=== PATIENT | male | born 1940 | race Caucasian/White ===

== ENCOUNTER 2019-12-26 11:27 | Inpatient (IN) ==
--- OUTSIDE RECORDS SUMMARY | 2019-12-26 11:30 | External Medical Summary | Continuity of Care Document ---
:1940 Author Name Allmena M.D. 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 Refills: 0 Zocor 20 MG Oral Tablet; TAKE 0.5 TABLET Bedtime , M.D. Refills: 0 glipiZIDE 10 MG Oral Tablet; Take 1 tablet twice daily , M.D . Refills: 0 Viagra 100 MG Oral Tablet; 1/2 as needed , M.D. Start: 14-Oct-2013 Quantity: 6 Refills: 5 raNITIdine HCl - 150 MG Oral Tablet; TAKE 1 TABLET TWICE MEKA LY. , M.D. Refills: 0 Vitamin B-12 1000 MCG Oral Tablet; TAKE 1 TABLET DAILY DI RECTED. , M.D. Refills: 0 Aspirin 81 81 MG Oral Tablet Delayed Release , M.D. Refills: 0 Nitroglycerin 0.4 MG Sublingual Tablet S ublingual; DISSOLVE 1 TABLET UNDER THE TONGUE NEEDED FOR CHEST PAIN. , M.D. Refills: 0 traMADol HCl - 50 MG Oral Tablet , M.D. Refills: 0 Doxycycline Hyclate 100 MG Oral Tablet; Take 1 tablet twice daily , M.D. Start: 14-Oct-2013 Refills: 0 Procedures History of CABG Status: Completed History of Knee Replacement Status: Comp leted History of Cath Stent Placement Status: Completed History of Cystoscopy With Insertion Of Ureteral Stent Status: Completed History of Renal Lithotripsy Status: Com pleted Immunizations Immunizations not documented Family History Unknown Family Member Family history of Diabetes Mellitus (V18.0) Status: Active Comments: Family History Family history of Hypertension (V17.49) Status: Active Comments: Family History Family history of Nephrolithiasis Status: Active Commen ts: Family History Family history of Prostate Cancer (V16.42) Status: Active Comments: Family History Family history of Heart Disease (V17.49) Status: Active Comments: Family History Social History - Smoking Status Never smoked tobacco Plan of Treatment Planned Observations Planned Goals not documented Results No Known Results Results not documented
[2019-12-26] MEDS ORDERED: NiCARDipine HCL INJ 2.5 MG/ML 10 ML AMP ONE (11:34)
[2019-12-26] MEDS ORDERED: MIDAZOLAM HCL 1 MG/ML 2ML VIAL ONE ×3 (11:34→14:27)
[2019-12-26] MEDS ORDERED: fentaNYL citrate 100 MCG/2 ML VIAL ONE ×3 (11:34→14:27)
[2019-12-26] MEDS ORDERED: HEPARIN (PORCINE) 1000 UNIT/ML 10 ML (CATH LAB USE ONLY) ONE (11:34)
[2019-12-26] MEDS ORDERED: NITROGLYCERIN/D5W 100MCG/ML 20ML SYR ONE (11:35)
[2019-12-26] MEDS ORDERED: EPINEPHrine (STAT use only) 2 MG in D5W 250 ML IV STA (11:35)
[2019-12-26] MEDS ORDERED: NOREPINEPHRINE BITARTRATE 1 MG/ML 4 ML VIAL (CATH LAB USE ONLY) ONE (11:40)
[2019-12-26] MEDS ORDERED: EPINEPHrine 4 MG in DEXTROSE 5% HYPOTENSION IV SCH (11:45)
[2019-12-26] MEDS ORDERED: SUCCINYLCHOLINE CHLORIDE 20 MG/ML 10 ML VIAL IV ONE (11:46)
[2019-12-26] MEDS ORDERED: KETAMINE HCL INJ 50 MG/ML 10 ML VIAL IV ONE (11:46)
[2019-12-26] MEDS ORDERED: ATROPINE SULFATE 0.1 MG/ML 10ML SYR IV ONE (11:46)
[2019-12-26] MEDS ORDERED: SODIUM CHLORIDE 0.9% 10ML FLUSH IV ONE (11:46)
[2019-12-26] MEDS ORDERED: SODIUM BICARB 8.4% INJ 50 MEQ/50 ML SYR IV ONE (11:46)
--- NOTE | 2019-12-26 11:49 | Emergency Department Note ---
Impression & Plan ST elevation (STEMI) myocardial infarction, Cardiogenic shock, Chest pain ED Provider Note Provider: Philippe Irwin MD DATE OF SERVICE: 12/26/2019 CHIEF COMPLAINT: Chest pain HISTORY OF PRESENT ILLNESS: Patient is a 79-year-old gentleman with a history of CKD, GERD, CAD status post CABG, diabetes presenting via ambulance today with chest pain. Alerted by EMS prior to arrival. Around 10 AM this morning severe chest pressure started. EMS consulted for concern for ST segment elevation giv en some anteriorly changes and inferior depressions. In review of this EKG to the prior from July 03 this does appear new. Given this and the report of the patient's conditions very concerned for cardiac etiology and ST segment elevation heart alert was activated. Patient reported to be diaphoretic prior to arrival. Took full dose aspirin and nitrox1 prior to arrival without change in symptoms. Blood pressure was initially in the 90s but then dropped to the 70s for EMS. Repeat EKG prior to arrival showed worsening inferior ST depression without such significant anterior changes. Upon arrival patient was quickly assessed blood pressure in the 50s. Appears quite uncomfortable and diaphoretic. Reports he was vacuuming and then had onset of chest pain and pressure 10 out of 10. Constant. No change in the symptoms since initiation. REVIEW OF SYSTEMS: A total of 10 review of systems was obtained and negative except as stated above in the HPI. PAST MEDICAL HISTORY: As noted above MEDICATIONS: Reviewed, include nitro, metoprolol FMH: Diabetes SOCIAL HISTORY: Not reported tobacco user but smoked in the past. Retired PHYSICAL EXAM: GENERAL: alert and oriented on the stretcher appears uncomfortable with eyes closed Head: normocephalic and atraumatic EYES: No injection, discharge or icterus. NECK: Trachea midline. Supple. ENT: Mucous membranes pink and moist. LUNGS: Airway patent. No retractions. Breath sounds HEART: Regular rate and rhythm. No chest wall tenderness ABDOMEN: Soft and non-tender, without guarding or rebound. BACK: No bilateral flank tenderness. SKIN: Pale, diaphoretic with mildly decreased peripheral perfusion. EXTREMITIES: Without swelling, tenderness or deformity NEUROLOGICAL: No focal deficits. No aphasia. No facial droop or slurred speech. EK bpm. Normal sinus rhythm right bundle branch. Acute ST segment elevation of the anterior leads is noted with reciprocal inferior depressions. This and the right bundle branch are new in comparison to previous available from June 2016. CONTINUOUS CARDIAC MONITORING: was ordered and showed a heart rate of 72 bpm in normal sinus rhythm HOSPITAL COURSE: 1127 Patient was first seen and H&P performed. 1143 patient taken to the cardiac catheterization lab. 1150 discussed and updated the patient's daughter via phone. 1235 called to the cardiac catheterization lab for intubation as the patient had declined and requires airway protection on the cardiac cath table. 1243 patient intubated. Additional care per the oil process stillman. Patient's laboratory studies and imaging reviewed. Differential includes Cardiac ischemia, aortic dissection, pulmonary embolism, pneumothorax, pneumonia, pericarditis, myocarditis, esophageal rupture, GERD, cholecystitis, pancreatitis, musculoskeletal, as well as other pathologies. IMPRESSION/MEDICAL DECISION MAKING: Patient presents activated prehospital for STEMI. Appears to be anterior wall STEMI. Hypotensive in the 50s with severe crushing chest pressure. Second IV was established. Second liter of IV fluid initiated. Started on peripheral epinephrine drip. Patient's blood pressure began to mildly respond. Limited pain medication nitroglycerin secondary to hypotension. lapidarist at bedside and discussed with patient and plans for further care in the cardiac catheterization lab. Lower suspicion this represents acute PE or dissection. No recent illnesses or exposures and lower suspicion for coronavirus at this time. Patient prior to arrival received aspirin. Patient hypotensive a second IV fluid bolus was given. Start epinephrine drip for hypotension and cardiogenic shock. Mild improvement of blood pressure with this. Does appear to have some decreased generalized peripheral perfusion. To the Lotus Notes Administrator for further care. DIAGNOSIS: STEMI, CP, cardiogenic shock DISPOSITION: To the cardiac catheterization lab for further care. ------ I was later called to the cardiac catheterization lab to intubate the patient for airway protection due to decline during the procedure. Patient evidently vomited during the cardiac catheterization procedure and persisted to be hy potensive and in shock. Respiratory therapy was available. Patient was on multiple pressors during the encounter including norepinephrine and epinephrine. Procedure: Intubation Indication airway protection. Intubation occurred approximately 12:43 PM. The patient was on 100% oxygen via NRB prior to the procedure. Suction, airway equipment, RSI drugs, respiratory equipment, and appropriate personnel were prepared prior to the initiation of the procedure. Patient was somewhat awake and talking and informed that we needed to perform this procedure to try to save his life and protect his airway. Induction was performed with 180mg of ketamine trying to maximize the patient's hypotensive state. Patient had some dissociation with some mild muscle spasm and was thus given 150 mg of succinylcholine for the intubation. The airway was visualized utilizing a glide scope #3. A 7.0 size ETT tube was placed atraumatically to 22 cm using standard technique at lips. The airway had vomitus that was suctioned and the cuff inflated without signs of malfunction. There were bilateral breath sounds, positive colormetric change. Patient was on the cardiac director of cardiac cath lab table in cardiogenic shock with poor peripheral perfusion. Unable to reliably obtain a pulse ox. The tube was secured and the patient was ventilated with BVM. Bilateral breath sounds were appreciated with color change noted. Peep valve was placed on the BVM. Shortly after intubation the patient had a period of arrhythmia and cardiac arrest. This resuscitation was directed by Dr. Zuniga performing the cardiac catheterization. See his documentation for further information. Critical Care I have personally spent 50 minutes of critical care time in the direct management of this patient. This includes bedside care, interpretation of diagnostic studies, and testing, discussion with consultants, patient, and family members, and other required patient management activities. These 50 minutes is in excess of all separately billable procedures. Past Med/Surg History Medical History CAD (coronary artery disease) CKD (chronic kidney disease), stage III Diabetes mellitus type II, controlled Dyslipidemia HTN (hypertension) with goal to be determined Surgical History S/P CABG x 3 Social History Communication Ability Comment: per EMR former tobacco user (snuff) Feels Safe at Home: Yes Smoking Status: Unknown if ever smoked Allergies Allergies Allergy/AdvReac Type Severity Reaction Status Date / Time No Known Allergies Allergy Unknown ` Verified 10/15/14 06:28 Home Meds Home Medications Medication Instructions Recorded Confirmed Nitroglycerin (Nitrostat) 0.4 mg UT UD PRN #0 12/26/09 Metoprolol Tartrate (Lopressor) 25 mg PO BID #0 07/02/10 (Lopressor) Ranitidine (Zantac) 150 mg PO BID #0 10/05/12 Simvastatin (Zocor) 20 mg PO QPM #0 08/21/13 ASPIRIN (OCTAVIA CHEWABLE LOW DOSE) 81 mg PO DAILY #0 10/15/14 CYANOCOBALAMIN (VITAMIN B12 500MCG) 500 mcg PO DAILY #0 10/15/14 LISINOPRIL 2.5 mg PO DAILY #0 tab 07/03/16 Previous Rx's Medication Instructions Recorded CALCIUM CARBONATE-VITAMIN D W/ 1 tab PO BID 30 Days #60 tab 07/07/16 (CALTRATE 600 PLUS) Enoxaparin (Enoxaparin Sodium) 40 mg SUBCUT QAM 14 Days #14 dose 07/07/16 Ergocalciferol (Vitamin D) 50,000 interunit PO Th@0900 90 07/07/16 Days #11 cap GLUCOSE BLOOD (BLOOD GLUCOSE TEST 1 box NOT APPLICABLE UD 30 Days #1 07/07/16 STRIPS) box Insulin Aspart (NOVOLOG) 5 unit SC TIDM 30 Days #1 btl 07/07/16 Insulin Glargine (Lantus) 25 unit SC QAM 30 Days #1 btl 07/07/16 glucose monitor 1 dose UD 30 Days #1 dose 07/07/16 lancet 1 box NOT APPLICABLE UD 30 Days #1 07/07/16 box needles 1 box 30 Days #1 box 07/07/16 syringes 1 box 30 Days #1 box 07/07/16 Results & Data (ED) Vital Signs Vital Signs - 24 hr 12/26/19 11:27 12/26/19 11:36 12/26/19 11:43 Temperature Source Oral Pulse Rate 76 76 Pulse Rate [Right Finger] 76 93 H Respiratory Rate 24 18 20 Blood Pressure 56/39 L Blood Pressure [Right Arm] 55/39 L 69/45 L Blood Pressure Mean 44 Blood Pressure Mean [Right Arm] 44 53 Pulse Oximetry 99 Oxygen Delivery Method Room Air Nasal Cannula Oxygen Flow Rate 2 Sepsis Recent Fever Within 48 Hours No Sepsis Action Taken by Nursing No Action Required 12/26/19 11:45 Temperature Source Pulse Rate 92 H Pulse Rate [Right Finger] Respiratory Rate 18 Blood Pressure 69/45 L Blood Pressure [Right Arm] Blood Pressure Mean Blood Pressure Mean [Right Arm] Pulse Oximetry 96 Oxygen Delivery Method Nasal Cannula Oxygen Flow Rate 2 Sepsis Recent Fever Within 48 Hours Sepsis Action Taken by Nursing Laboratory Data Result diagrams: 12/26/19 10:55 12/26/19 10:55 Lab Results 12/26/19 12/26/19 12/26/19 Range/Units 10:55 10:55 10:55 WBC 8.82 (4.8-10.8) K/uL RBC 4.40 L (4.7-6.1) M/uL Hgb 14.5 (14.0-18.0) g/dL POC Hgb (14.0-18.0) g/dl Hct 41.7 L (42-52) % POC Hct (42-52) % MCV 94.8 (80-100) fL MCH 33.0 (25-34) pg MCHC 34.8 (32-36) g/dL RDW Std Deviation 45.3 (36.4-46.3) fL RDW Coeff of Gricelda 13.1 (11.5-14.5) % Plt Count 167 (130-400) K/uL MPV 11.0 H (7.4-10.4) fL Immature Gran % (Auto) 0.8 % Neut % (Auto) 60.4 % Lymph % (Auto) 22.1 % [place] % (Auto) 11.6 % Eos % (Auto) 4.5 % Baso % (Auto) 0.6 % Immature Gran # (Auto) 0.07 H (0.00-0.02) K/uL Neut # (Auto) 5.33 (1.4-6.5) K/uL Lymph # (Auto) 1.95 (1.2-3.4) K/uL [place] # (Auto) 1.02 H (0.11-0.59) K/uL Eos # (Auto) 0.40 (0-0.5) K/uL Baso # (Auto) 0.05 (0-0.2) K/uL PT 11.3 (9.0-12.0) Seconds INR 1.1 (0.9-1.1) APTT 23.3 (21.0-31.0) Seconds PTT Ratio 0.8 POC Sodium (135-144) mmol/L Sodium (136-145) mmol/L POC Potassium (3.3-5.0) mmol/L Potassium (3.5-5.1) mmol/L POC Chloride (101-112) mmol/L Chloride (98-107) mmol/L Carbon Dioxide (21-32) mmol/L POC Total CO2 (24-31) mmol/L Anion Gap (3-11) POC Anion Gap (16-25) mmol/L POC BUN (7-18) mg/dl BUN (7-18) mg/dl Creatinine (0.6-1.4) mg/dl POC Creatinine (0.6-1.3) mg/dl Est Cr Clr Drug Dosing Est GFR ( Amer) Est GFR (Non-Af Amer) BUN/Creatinine Ratio (10-20) Glucose (70-99) mg/dl POC Glucose (other) (70-99) mg/dl Calcium (8.5-10.1) mg/dl POC Ioniz Calcium Julio (1.12-1.32) mmol/l Magnesium (1.8-2.4) mg/dl Total Bilirubin (0.2-1) mg/dl AST (15-37) U/L ALT (12-78) U/L Alkaline Phosphatase (45-117) U/L Total Creatine Kinase (39-308) U/L CK-MB (CK-2) (0.5-3.6) ng/ml CK/CKMB % Calc (0-3.0) Troponin I Cancelled Total Protein (6.4-8.2) gm/dl Albumin (3.4-5.0) gm/dl Globulin (2.5-4.0) gm/dl Albumin/Globulin Ratio (0.9-2) Lipase (73-393) U/L Beta-Hydroxybutyric Acd (0.2-2.81) mg/dl TSH (0.300-4.500) uIu/ml 12/26/19 12/26/19 Range/Units 10:55 11:40 WBC (4.8-10.8) K/uL RBC (4.7-6.1) M/uL Hgb (14.0-18.0) g/dL POC Hgb 13.9 L (14.0-18.0) g/dl Hct (42-52) % POC Hct 41 L (42-52) % MCV (80-100) fL MCH (25-34) pg MCHC (32-36) g/dL RDW Std Deviation (36.4-46.3) fL RDW Coeff of Gricelda (11.5-14.5) % Plt Count (130-400) K/uL MPV (7.4-10.4) fL Immature Gran % (Auto) % Neut % (Auto) % Lymph % (Auto) % [place] % (Auto) % Eos % (Auto) % Baso % (Auto) % Immature Gran # (Auto) (0.00-0.02) K/uL Neut # (Auto) (1.4-6.5) K/uL Lymph # (Auto) (1.2-3.4) K/uL [place] # (Auto) (0.11-0.59) K/uL Eos # (Auto) (0-0.5) K/uL Baso # (Auto) (0-0.2) K/uL PT (9.0-12.0) Seconds INR (0.9-1.1) APTT (21.0-31.0) Seconds PTT Ratio POC Sodium 140 (135-144) mmol/L Sodium 139 (136-145) mmol/L POC Potassium 4.5 (3.3-5.0) mmol/L Potassium 3.9 (3.5-5.1) mmol/L POC Chloride 109 (101-112) mmol/L Chloride 108 H (98-107) mmol/L Carbon Dioxide 24 (21-32) mmol/L POC Total CO2 20 L (24-31) mmol/L Anion Gap 7.0 (3-11) POC Anion Gap 16.0 (16-25) mmol/L POC BUN 39 H (7-18) mg/dl BUN 38 H (7-18) mg/dl Creatinine 1.99 H (0.6-1.4) mg/dl POC Creatinine 1.9 H (0.6-1.3) mg/dl Est Cr Clr Drug Dosing Not Reportable Est GFR ( Amer) 35.7 Est GFR (Non-Af Amer) 30.8 BUN/Creatinine Ratio 19.2 (10-20) Glucose 316 H* (70-99) mg/dl POC Glucose (other) 332 H (70-99) mg/dl Calcium 9.1 (8.5-10.1) mg/dl POC Ioniz Calcium Julio 1.25 (1.12-1.32) mmol/l Magnesium 1.9 (1.8-2.4) mg/dl Total Bilirubin 0.8 (0.2-1) mg/dl AST 20 (15-37) U/L ALT 27 (12-78) U/L Alkaline Phosphatase 36 L (45-117) U/L Total Creatine Kinase 78 (39-308) U/L CK-MB (CK-2) 5.2 H (0.5-3.6) ng/ml CK/CKMB % Calc 6.7 H (0-3.0) Troponin I < 0.015 Total Protein 6.7 (6.4-8.2) gm/dl Albumin 3.3 L (3.4-5.0) gm/dl Globulin 3.4 (2.5-4.0) gm/dl Albumin/Globulin Ratio 1.0 (0.9-2) Lipase 107 (73-393) U/L Beta-Hydroxybutyric Acd 1.76 (0.2-2.81) mg/dl TSH 3.110 (0.300-4.500) uIu/ml Administered Medications Epinephrine HCl 2 mg/ Dextrose 252 mls @ 67.36 mls/hr IV .Q3H45M STA; Protocol Stop: 12/26/19 15:19 Last Admin: 12/26/19 11:35 Dose: 0.1 mcg/kg/min, 67.4 mls/hr Documented by: [id number] Cosigned by: [id number] Discharge Plan Visit Data *Final* Discharge Date/Time: 12/26/19 11:45 Chief Complaint: Heart Alert Stated Complaint: cardiac alert ED Provider: Philippe Irwin Discharge Problem: ST elevation (STEMI) myocardial infarction, Cardiogenic shock, Chest pain Patient Disposition: Still a Patient Condition: Critical Discharge Instructions Interventions: ED Discharge Assessment Last Done: 12/26/19 11:45 Discharge Problem: ST elevation (STEMI) myocardial infarction Qualifiers: Involved coronary artery: unspecified coronary artery Qualified Code(s): I21.3 - ST elevation (STEMI) myocardial infarction of unspecified site Chest pain Qualifiers: Chest pain type: unspecified Qualified Code(s): R07.9 - Chest pain, unspecified
[2019-12-26 11:50] LABS: Basophils # (auto) 0.05 K/uL (0-0.2); Basophils % (auto) 0.6 %; Eosinophils % (auto) 4.5 %; Hematocrit (blood only) 41.7 % (42-52); Hemoglobin 14.5 g/dL (14.0-18.0); Immature Granulocytes # (auto) 0.07 K/uL (0.00-0.02); Immature Granulocytes % (auto) 0.8 %; Lymphocytes # (auto) 1.95 K/uL (1.2-3.4); Lymphocytes % (auto) 22.1 %; Mean Corpuscular Hgb Conc 34.8 g/dL (32-36); Mean Corpuscular Volume 94.8 fL (80-100); Monocytes # (auto) 1.02 K/uL (0.11-0.59); Monocytes % (auto) 11.6 %; Neutrophils # (auto) 5.33 K/uL (1.4-6.5); Neutrophils % (auto) 60.4 %; Platelet Count 167 K/uL (130-400); RDW Coefficient of Variation 13.1 % (11.5-14.5); RDW Standard Deviation 45.3 fL (36.4-46.3); White Blood Count 8.82 K/uL (4.8-10.8)
[2019-12-26 11:52] LABS: iSTAT Creatinine 1.9 mg/dl (0.6-1.3); iSTAT Hemoglobin 13.9 g/dl (14.0-18.0); iSTAT Ionized Calcium 1.25 mmol/l (1.12-1.32); iSTAT Potassium 4.5 mmol/L (3.3-5.0)
[2019-12-26 12:01] LABS: INR 1.1 (0.9-1.1); Partial Thromboplastin Ratio 0.8; Partial Thromboplastin Time 23.3 Seconds (21.0-31.0); Prothrombin Time 11.3 Seconds (9.0-12.0)
[2019-12-26] MEDS ORDERED: EPTIFIBATIDE 2 MG/ML 10 ML VIAL (CATH LAB USE ONLY) IV ONE ×2 (12:07→13:16)
[2019-12-26] MEDS ORDERED: RAPID SEQUENCE INDUCTION BAG ONE (12:14)
[2019-12-26 12:23] LABS: Alanine Aminotransferase 27 U/L (12-78); Albumin Level 3.3 gm/dl (3.4-5.0); Aspartate Aminotransferase 20 U/L (15-37); BUN Creatinine Ratio 19.2 (10-20); Blood Urea Nitrogen 38 mg/dl (7-18); Calcium 9.1 mg/dl (8.5-10.1); Carbon Dioxide 24 mmol/L (21-32); Chloride 108 mmol/L (98-107); Est GFR (African American) 35.7; Est GFR (Non-African American) 30.8; Glucose 316 mg/dl (70-99); Lipase 107 U/L (73-393); Magnesium 1.9 mg/dl (1.8-2.4); Potassium 3.9 mmol/L (3.5-5.1); Sodium 139 mmol/L (136-145)
[2019-12-26 12:24] LABS: Alkaline Phosphatase 36 U/L (45-117); Bilirubin,Total 0.8 mg/dl (0.2-1); Creatine Kinase 78 U/L (39-308); Creatine Kinase MB 5.2 ng/ml (0.5-3.6); Globulin 3.4 gm/dl (2.5-4.0); Total Protein 6.7 gm/dl (6.4-8.2); Troponin I < 0.015 ng/ml (0-0.045)
[2019-12-26 12:40] LABS: Beta-Hydroxybutyrate 1.76 mg/dl (0.2-2.81)
[2019-12-26] MEDS ORDERED: ICU PROTOCOL FOR HYPERGLYCEMIA PRN (12:40)
[2019-12-26] MEDS ORDERED: AMIODARONE 360MG / 200ML D5W (CATH LAB USE ONLY) ONE (12:53)
[2019-12-26] MEDS ORDERED: AMIODARONE 150MG / 100ML D5W (CATH LAB USE ONLY) ONE (12:53)
--- NOTE | 2019-12-26 13:14 | History & Physical Report ---
Date of Service December 26, 2019 Assessment & Plan (1) CAD (coronary artery disease): (2) S/P CABG x 3: History of CAD status post CABG x3and LAD stenting, and prior posterior inferior UT -Follows with Dr. Woodard for cardiac care -Last echo in November 2014, EF 55- 59%, moderate sized inferior posterior infarct with a small basal posterior aneurysm, wall motion otherwise normal, LV diastolic dysfunction grade 1, mild mitral regurg, proximal ascending thoracic aorta mildly enlarged -At the last cardiology visit, CAD was stable without exertional angina, however activity limited by chronic low back pain/spinal stenosis -at home on daily aspirin, metoprolol tartrate, lisinopril, atorvastatin (3) HTN (hypertension) with goal to be determined: -Patient on losartan, BP previously well controlled -Now patient presented with hypotension, systolic blood pressure first in 80s, then down to 50s likely due to cardiogenic shock as above (4) Dyslipidemia: - on atorvastatin 40 mg daily - last LDL 83, goal LDL <70 (5) DM type 2 (diabetes mellitus, type 2): - insulin dependent - last Hb A1c 6.7% in 02/2019 - cont. insulin/ ICU glycemic protoco (6) CKD (chronic kidney disease), stage III: -Creatinine on admission 1.9, at baseline -Try to avoid nephrotoxic agents, NSAIDs History of Present Illness Chief Complaint: Chest pain Primary Care Provider: Dipti Woodard DO Patient is an 79-year-old gentleman with a history of CAD s/p CABG x3, drug- eluting stent into LAD, JAMIE evidence of inferior posterior UT with preserved systolic function, CKD stage III, Diabetes mellitus type 2, insulin-dependent (last hemoglobin A1c 6.7%, in February 2019) who presented via ambulance today with chest pain. Around 10 AM this morning patient reported severe chest pressure and diaphoresis. Reportedly, patient took aspirin and nitro prior to arrival. EMS consulted for concern for ST segment elevation. Patient was found quite hypotensive, per EMS, BP was initially in the 90s but then dropped to 70s. In the emergency room patient was promptly assessed, found hypotensive even into 50s. Second liter of IV fluid initiated, and started on peripheral epinephrine drip. Heart alert was activated and patient was transferred to cardiac catheterization lab for further management. Patient required balloon pump, currently ventilated, in cardiac cath. Allergies Allergy/AdvReac Type Severity Reaction Status Date / Time No Known Allergies Allergy Unknown ` Verified 10/15/14 06:28 Home Medications Home Medications Medication Instructions Recorded Confirmed Type Nitroglycerin (Nitrostat) 0.4 mg UT UD PRN #0 12/26/09 History Metoprolol Tartrate (Lopressor) 25 mg PO BID #0 07/02/10 History (Lopressor) Ranitidine (Zantac) 150 mg PO BID #0 05/22/12 History Simvastatin (Zocor) 20 mg PO QPM #0 08/21/13 History ASPIRIN (OCTAVIA CHEWABLE LOW DOSE) 81 mg PO DAILY #0 10/15/14 History CYANOCOBALAMIN (VITAMIN B12 500MCG) 500 mcg PO DAILY #0 10/15/14 History LISINOPRIL 2.5 mg PO DAILY #0 tab 07/03/16 History CALCIUM CARBONATE-VITAMIN D W/ 1 tab PO BID 30 Days #60 tab 07/07/16 Rx (CALTRATE 600 PLUS) Enoxaparin (Enoxaparin Sodium) 40 mg SUBCUT QAM 14 Days #14 dose 07/07/16 Rx Ergocalciferol (Vitamin D) 50,000 interunit PO Th@0900 90 07/07/16 Rx Days #11 cap GLUCOSE BLOOD (BLOOD GLUCOSE TEST 1 box NOT APPLICABLE UD 30 Days #1 07/07/16 Rx STRIPS) box Insulin Aspart (NOVOLOG) 5 unit SC TIDM 30 Days #1 btl 07/07/16 Rx Insulin Glargine (Lantus) 25 unit SC QAM 30 Days #1 btl 07/07/16 Rx glucose monitor 1 dose UD 30 Days #1 dose 07/07/16 Rx lancet 1 box NOT APPLICABLE UD 30 Days #1 07/07/16 Rx box needles 1 box 30 Days #1 box 07/07/16 Rx syringes 1 box 30 Days #1 box 07/07/16 Rx Past Med/Surg History Medical History (Updated 12/26/19 @ 13:49 by Chemo Delgado DO) CAD (coronary artery disease) CKD (chronic kidney disease), stage III Diabetes mellitus type II, controlled Dyslipidemia HTN (hypertension) with goal to be determined Surgical History (Updated 12/26/19 @ 13:07 by Kashmir Jiménez MD) S/P CABG x 3 Social History (Updated 12/26/19 @ 13:09 by Kashmir Jiménez MD) Communication Ability Comment: per EMR former tobacco user (snuff) Feels Safe at Home: Yes Smoking Status: Unknown if ever smoked Review of Systems Review of Systems: Unobtainable due to endotracheal tube prior to arrival pt reported crushing chest pain Results & Data Results & Data ([facility]) Vital Signs (Past 12 Hours) Vital Signs Pulse Pulse Resp BP BP Pulse Ox 12/26/19 11:45 92 H 18 69/45 L 96 12/26/19 11:43 93 H 20 69/45 L 12/26/19 11:36 76 76 18 55/39 L 99 12/26/19 11:27 76 24 56/39 L Laboratory Results 12/26/19 12/26/19 12/26/19 Range/Units 11:40 10:55 10:55 WBC (4.8-10.8) K/uL RBC (4.7-6.1) M/uL Hgb (14.0-18.0) g/dL POC Hgb 13.9 L (14.0-18.0) g/dl Hct (42-52) % POC Hct 41 L (42-52) % MCV (80-100) fL MCH (25-34) pg MCHC (32-36) g/dL RDW Std Deviation (36.4-46.3) fL RDW Coeff of Gricelda (11.5-14.5) % Plt Count (130-400) K/uL MPV (7.4-10.4) fL Immature Gran % (Auto) % Neut % (Auto) % Lymph % (Auto) % Green % (Auto) % Eos % (Auto) % Baso % (Auto) % Immature Gran # (Auto) (0.00-0.02) K/uL Neut # (Auto) (1.4-6.5) K/uL Lymph # (Auto) (1.2-3.4) K/uL Green # (Auto) (0.11-0.59) K/uL Eos # (Auto) (0-0.5) K/uL Baso # (Auto) (0-0.2) K/uL PT 11.3 (9.0-12.0) Seconds INR 1.1 (0.9-1.1) APTT 23.3 (21.0-31.0) Seconds PTT Ratio 0.8 POC Sodium 140 (135-144) mmol/L Sodium 139 (136-145) mmol/L POC Potassium 4.5 (3.3-5.0) mmol/L Potassium 3.9 (3.5-5.1) mmol/L POC Chloride 109 (101-112) mmol/L Chloride 108 H (98-107) mmol/L Carbon Dioxide 24 (21-32) mmol/L POC Total CO2 20 L (24-31) mmol/L Anion Gap 7.0 (3-11) POC Anion Gap 16.0 (16-25) mmol/L POC BUN 39 H (7-18) mg/dl BUN 38 H (7-18) mg/dl Creatinine 1.99 H (0.6-1.4) mg/dl POC Creatinine 1.9 H (0.6-1.3) mg/dl Est Cr Clr Drug Dosing Not Reportable Est GFR ( Amer) 35.7 Est GFR (Non-Af Amer) 30.8 BUN/Creatinine Ratio 19.2 (10-20) Glucose 316 H* (70-99) mg/dl POC Glucose (other) 332 H (70-99) mg/dl Calcium 9.1 (8.5-10.1) mg/dl POC Ioniz Calcium Julio 1.25 (1.12-1.32) mmol/l Magnesium 1.9 (1.8-2.4) mg/dl Total Bilirubin 0.8 (0.2-1) mg/dl AST 20 (15-37) U/L ALT 27 (12-78) U/L Alkaline Phosphatase 36 L (45-117) U/L Total Creatine Kinase 78 (39-308) U/L CK-MB (CK-2) 5.2 H (0.5-3.6) ng/ml CK/CKMB % Calc 6.7 H (0-3.0) Troponin I < 0.015 Total Protein 6.7 (6.4-8.2) gm/dl Albumin 3.3 L (3.4-5.0) gm/dl Globulin 3.4 (2.5-4.0) gm/dl Albumin/Globulin Ratio 1.0 (0.9-2) Lipase 107 (73-393) U/L Beta-Hydroxybutyric Acd 1.76 (0.2-2.81) mg/dl TSH 3.110 (0.300-4.500) uIu/ml 12/26/19 12/26/19 Range/Units 10:55 10:55 WBC 8.82 (4.8-10.8) K/uL RBC 4.40 L (4.7-6.1) M/uL Hgb 14.5 (14.0-18.0) g/dL POC Hgb (14.0-18.0) g/dl Hct 41.7 L (42-52) % POC Hct (42-52) % MCV 94.8 (80-100) fL MCH 33.0 (25-34) pg MCHC 34.8 (32-36) g/dL RDW Std Deviation 45.3 (36.4-46.3) fL RDW Coeff of Gricelda 13.1 (11.5-14.5) % Plt Count 167 (130-400) K/uL MPV 11.0 H (7.4-10.4) fL Immature Gran % (Auto) 0.8 % Neut % (Auto) 60.4 % Lymph % (Auto) 22.1 % Green % (Auto) 11.6 % Eos % (Auto) 4.5 % Baso % (Auto) 0.6 % Immature Gran # (Auto) 0.07 H (0.00-0.02) K/uL Neut # (Auto) 5.33 (1.4-6.5) K/uL Lymph # (Auto) 1.95 (1.2-3.4) K/uL Green # (Auto) 1.02 H (0.11-0.59) K/uL Eos # (Auto) 0.40 (0-0.5) K/uL Baso # (Auto) 0.05 (0-0.2) K/uL PT (9.0-12.0) Seconds INR (0.9-1.1) APTT (21.0-31.0) Seconds PTT Ratio POC Sodium (135-144) mmol/L Sodium (136-145) mmol/L POC Potassium (3.3-5.0) mmol/L Potassium (3.5-5.1) mmol/L POC Chloride (101-112) mmol/L Chloride (98-107) mmol/L Carbon Dioxide (21-32) mmol/L POC Total CO2 (24-31) mmol/L Anion Gap (3-11) POC Anion Gap (16-25) mmol/L POC BUN (7-18) mg/dl BUN (7-18) mg/dl Creatinine (0.6-1.4) mg/dl POC Creatinine (0.6-1.3) mg/dl Est Cr Clr Drug Dosing Est GFR ( Amer) Est GFR (Non-Af Amer) BUN/Creatinine Ratio (10-20) Glucose (70-99) mg/dl POC Glucose (other) (70-99) mg/dl Calcium (8.5-10.1) mg/dl POC Ioniz Calcium Julio (1.12-1.32) mmol/l Magnesium (1.8-2.4) mg/dl Total Bilirubin (0.2-1) mg/dl AST (15-37) U/L ALT (12-78) U/L Alkaline Phosphatase (45-117) U/L Total Creatine Kinase (39-308) U/L CK-MB (CK-2) (0.5-3.6) ng/ml CK/CKMB % Calc (0-3.0) Troponin I Cancelled Total Protein (6.4-8.2) gm/dl Albumin (3.4-5.0) gm/dl Globulin (2.5-4.0) gm/dl Albumin/Globulin Ratio (0.9-2) Lipase (73-393) U/L Beta-Hydroxybutyric Acd (0.2-2.81) mg/dl TSH (0.300-4.500) uIu/ml Medications Administered Current Inpatient Medications Epinephrine HCl 2 mg/ Dextrose 252 mls @ 67.36 mls/hr IV .Q3H45M STA; Protocol Stop: 12/26/19 15:19 Last Admin: 12/26/19 11:35 Dose: 0.1 mcg/kg/min, 67.4 mls/hr Documented by: Epinephrine HCl 4 mg/ Dextrose 254 mls @ 0 mls/hr IV .Q0M CHRISTOPH; Protocol Stop: 01/25/20 11:44 Miscellaneous (Icu Protocol For Hyperglycemia) 1 ea N/A PRN PRN; Protocol PRN Reason: Hyperglycemia Protocol Stop: 12/28/19 12:39
[2019-12-26] MEDS ORDERED: SODIUM BICARB 8.4% INJ 50 MEQ/50 ML SYR ONE (13:17)
[2019-12-26] MEDS ORDERED: DOBUTamine 500MG / 250ML D5W (CATH LAB USE ONLY) ONE (13:22)
[2019-12-26] MEDS ORDERED: VASOPRESSION #-# Do NOT Titrate #-# Option IV SCH (13:30)
[2019-12-26] MEDS ORDERED: SODIUM BICARBONATE 8.4% 100 MEQ in DEXTROSE 5% 1,000 ML IV SCH (13:30)
--- NOTE | 2019-12-26 13:51 | History & Physical Report ---
Date of Service December 26, 2019 Assessment & Plan (1) ST elevation (STEMI) myocardial infarction involving left main coronary artery: Coronary blood flow was reestablished after intervention to the left main and LAD with continued severe proximal circumflex stenosis and RCA -medium caliber vessel, diffuse distal disease prior to 95% stenosis just prior to bifurcation with small PDA/PLB The patient is currently hemodynamically stable on epinephrine, norepinephrine and amiodarone drips. He remains intubated on the vent and balloon pump in place. [place] catheter was also placed. Given the patient's critical condition and complex disease he will be transferred to [facility] in [place] for higher level of care. I spoke with Dr. High the transferring action installer who accepted the patient for transfer. He is to be transported now via [facility]. Family to be updated. (2) CAD (coronary artery disease): (3) CKD (chronic kidney disease), stage III: (4) GERD (gastroesophageal reflux disease): (5) DM type 2 (diabetes mellitus, type 2): History of Present Illness Chief Complaint: Anterior STEMI Primary Care Provider: Dipti Woodard DO Mr. Vazquez is a very pleasant 79-year-old gentleman who normally follows with Dr. Martinez of our cardiology practice. He presented to [facility] via EMS in the a.m. of 12/26/2019 with complaints of acute chest pain. The patient is currently intubated and the history is obtained through review of medical records and discussions with medical personnel. Reportedly the patient developed chest pain around 10 AM. He described it as a pressure sensation. EMS arrived EKG was performed and a heart alert was called. Upon arrival to the emergency department the patient was diaphoretic and he became hypotensive. He received nitro and aspirin without any improvement of the discomfort and he states the pain remained a 10 out of 10. He was taken emergently to the cardiac catheterization lab where he was found to have an occluded left main into the LAD. The patient became unstable at that time and was intubated. Patient went into cardiac arrest and ACLS protocol was performed. Cardiac catheterization was able to restore blood flow to the left main and LAD but a severe proximal circumflex occlusion remain present. The patient stabilized after insertion of a balloon pump and being started on epinephrine and norepinephrine drips. The patient went into atrial fibrillation which is a new diagnosis and he was started on amiodarone. Blood pressures currently 130/80. The patient is intubated without sedation and unresponsive. Past medical history: 1. Coronary artery disease status post CABG x4 in 2006 with a KHAN to the LAD, SVG to the RCA SVG to OM1 and SVG to OM 2. 2. Follow-up cardiac catheterization 2009 noted all grafts to be occluded and he received an LAD stent at that time. 3. Hypertension 4. Diabetes 5. Dyslipidemia 6. Chronic back pain that limits ambulation Allergies Allergy/AdvReac Type Severity Reaction Status Date / Time No Known Allergies Allergy Unknown ` Verified 10/15/14 06:28 Home Medications Home Medications Medication Instructions Recorded Confirmed Type Nitroglycerin (Nitrostat) 0.4 mg UT UD PRN #0 12/26/09 History Metoprolol Tartrate (Lopressor) 25 mg PO BID #0 07/02/10 History (Lopressor) Ranitidine (Zantac) 150 mg PO BID #0 05/22/12 History Simvastatin (Zocor) 20 mg PO QPM #0 08/21/13 History ASPIRIN (OCTAVIA CHEWABLE LOW DOSE) 81 mg PO DAILY #0 10/15/14 History CYANOCOBALAMIN (VITAMIN B12 500MCG) 500 mcg PO DAILY #0 10/15/14 History LISINOPRIL 2.5 mg PO DAILY #0 tab 07/03/16 History CALCIUM CARBONATE-VITAMIN D W/ 1 tab PO BID 30 Days #60 tab 07/07/16 Rx (CALTRATE 600 PLUS) Enoxaparin (Enoxaparin Sodium) 40 mg SUBCUT QAM 14 Days #14 dose 07/07/16 Rx Ergocalciferol (Vitamin D) 50,000 interunit PO Th@0900 90 07/07/16 Rx Days #11 cap GLUCOSE BLOOD (BLOOD GLUCOSE TEST 1 box NOT APPLICABLE UD 30 Days #1 07/07/16 Rx STRIPS) box Insulin Aspart (NOVOLOG) 5 unit SC TIDM 30 Days #1 btl 07/07/16 Rx Insulin Glargine (Lantus) 25 unit SC QAM 30 Days #1 btl 07/07/16 Rx glucose monitor 1 dose UD 30 Days #1 dose 07/07/16 Rx lancet 1 box NOT APPLICABLE UD 30 Days #1 07/07/16 Rx box needles 1 box 30 Days #1 box 11/20/16 Rx syringes 1 box 30 Days #1 box 07/07/16 Rx Past Med/Surg History Medical History CAD (coronary artery disease) CKD (chronic kidney disease), stage III Diabetes mellitus type II, controlled Dyslipidemia HTN (hypertension) with goal to be determined Surgical History S/P CABG x 3 Social History Communication Ability Comment: per EMR former tobacco user (snuff) Feels Safe at Home: Yes Smoking Status: Unknown if ever smoked Review of Systems Review of Systems: Unobtainable due to endotracheal tube Physical Exam Physical Exam: General: Unresponsive to physical and verbal stimuli. Intubated with endotracheal tube in place. HEENT: Normocephalic, atraumatic. Pupils sluggish and equal. Extraocular muscles are intact. Anicteric sclera. Moist mucous membranes. Neck: No JVD. No bruit. Cardiovascular: Regular. Positive S-4. Normal S-1 and S-2. No S-3. 3/6 mid to late systolic ejection murmur, greatest at the right sternal border, second intercostal space with radiation to the bilateral carotids. No rubs. Pulmonary: Clear to auscultation bilaterally. No rales, rhonchi, or wheezing. Abdomen: Bowel sounds x 4, soft. No rebound, guarding or tenderness. No organomegaly. Extremities: No clubbing, cyanosis or edema. +2 pedal pulses bilaterally. Skin: Warm and dry. Results & Data Results & Data ([facility]) Vital Signs (Past 12 Hours) Vital Signs Pulse Pulse Resp BP BP Pulse Ox 12/26/19 11:45 92 H 18 69/45 L 96 12/26/19 11:43 93 H 20 69/45 L 12/26/19 11:36 76 76 18 55/39 L 99 12/26/19 11:27 76 24 56/39 L Laboratory Results Laboratory Results - last 24 hr 12/26/19 12/26/19 12/26/19 10:55 10:55 10:55 WBC 8.82 RBC 4.40 L Hgb 14.5 POC Hgb Hct 41.7 L POC Hct MCV 94.8 MCH 33.0 MCHC 34.8 RDW Std Deviation 45.3 RDW Coeff of Gricelda 13.1 Plt Count 167 MPV 11.0 H Immature Gran % (Auto) 0.8 Neut % (Auto) 60.4 Lymph % (Auto) 22.1 Williamson % (Auto) 11.6 Eos % (Auto) 4.5 Baso % (Auto) 0.6 Immature Gran # (Auto) 0.07 H Neut # (Auto) 5.33 Lymph # (Auto) 1.95 Williamson # (Auto) 1.02 H Eos # (Auto) 0.40 Baso # (Auto) 0.05 PT 11.3 INR 1.1 APTT 23.3 PTT Ratio 0.8 POC Sodium Sodium POC Potassium Potassium POC Chloride Chloride Carbon Dioxide POC Total CO2 Anion Gap POC Anion Gap POC BUN BUN Creatinine POC Creatinine Est Cr Clr Drug Dosing Est GFR ( Amer) Est GFR (Non-Af Amer) BUN/Creatinine Ratio Glucose POC Glucose (other) Calcium POC Ioniz Calcium Julio Magnesium Total Bilirubin AST ALT Alkaline Phosphatase Total Creatine Kinase CK-MB (CK-2) CK/CKMB % Calc Troponin I Cancelled Total Protein Albumin Globulin Albumin/Globulin Ratio Lipase Beta-Hydroxybutyric Acd TSH 12/26/19 12/26/19 10:55 11:40 WBC RBC Hgb POC Hgb 13.9 L Hct POC Hct 41 L MCV MCH MCHC RDW Std Deviation RDW Coeff of Gricelda Plt Count MPV Immature Gran % (Auto) Neut % (Auto) Lymph % (Auto) Williamson % (Auto) Eos % (Auto) Baso % (Auto) Immature Gran # (Auto) Neut # (Auto) Lymph # (Auto) Williamson # (Auto) Eos # (Auto) Baso # (Auto) PT INR APTT PTT Ratio POC Sodium 140 Sodium 139 POC Potassium 4.5 Potassium 3.9 POC Chloride 109 Chloride 108 H Carbon Dioxide 24 POC Total CO2 20 L Anion Gap 7.0 POC Anion Gap 16.0 POC BUN 39 H BUN 38 H Creatinine 1.99 H POC Creatinine 1.9 H Est Cr Clr Drug Dosing Not Reportable Est GFR ( Amer) 35.7 Est GFR (Non-Af Amer) 30.8 BUN/Creatinine Ratio 19.2 Glucose 316 H* POC Glucose (other) 332 H Calcium 9.1 POC Ioniz Calcium Julio 1.25 Magnesium 1.9 Total Bilirubin 0.8 AST 20 ALT 27 Alkaline Phosphatase 36 L Total Creatine Kinase 78 CK-MB (CK-2) 5.2 H CK/CKMB % Calc 6.7 H Troponin I < 0.015 Total Protein 6.7 Albumin 3.3 L Globulin 3.4 Albumin/Globulin Ratio 1.0 Lipase 107 Beta-Hydroxybutyric Acd 1.76 TSH 3.110 Code Status & VTE Plan VTE Prophylaxis Plan VTE Prophylaxis will be ordered: No Critical Care Time Critical Care Time: Yes Total Critical Care Time: 110 A total of 110 minutes were spent in direct patient care along with arranging for transfer to [facility] in [place].
--- NOTE | 2019-12-26 13:57 | Cardiac Catheterization ---
[facility] Data: Cellular Equipment Repairer Cardiac Status Clinical evaluation leading to the procedure CAD Presenation: STEMI Anginal Classification: CCS IV Heart Failure: No Cardiogenic Shock within 24 Hours: Yes Cardiac Arrest within 24 Hours: Yes Imaging Studies Past 6 Months: No Stress Studies Past 6 Months: No Diagnostic Physicians Name: Eugenio Zuniga MD Closure Device Percutaneous Entry Location: Radial Closure Device: Radial Band Recommendations: PCI without planned CABG PCI Indication: Immediate PCI for STEMI Lesion Segment Name: distal Left main Culprit Artery: Yes Stenosis Prior to Rx (%): 100 Chronic Total Occlusion: No IVUS: No FFR: No Pre-Procedure NIKITA Flow: 0 Previously Treated Lesion: No Lesion Complexity: High/C Lesion Length (mm): 15 Thrombus Present: Yes Bifurcation Lesion: Yes Guidewire Across Lesion: Stenosis Post-Procedure (%): 3 Post-Procedure NIKITA Flow: 3 Devices(s) Deployed: Yes Yes Intraprocedure Events Significant Disection: No Perforation: No Cardiac Cath Procedure Full Procedure Date December 26, 2019 Pre-Procedure Diagnosis Pre-Procedure Diagnosis: STEMI AUC Score AUC Score: 9 Post-Procedure Diagnosis Post-Procedure Diagnosis: Severe CAD, Successful PCI and Decreased LV Systolic Function Procedure(s) Performed Procedure(s) Performed: Coronary Angiography, Left Heart Cath, Right Heart Cath, IABP, Ultrasound Guided Vascular Access, CPR and Femoral Artery Angiography Dried Fruit Washer Eugenio Zuniga MD Assistant To The Dean(s) Shaw Estimated Blood Loss Estimated Blood Loss: 20 Medication(s) Medication(s): Atropine, Epinephrine, Fentanyl, Heparin, Integrilin, Lidocaine 1%, Nicardipine, Nitroglycerin, Norepinephrine and Versed Medication(s): Amiodarone Bicarb Vasopressin Summary of Findings Indication: STEMI/Heart Alert Access: 6 Fr right ulnar artery under ultrasound guidance, 8 Fr right common femoral artery, 7 Fr right common femoral vein Catheters: EBU 3.5, JR4 diagnostic, 6 Fr Dora Findings: LM -acute 100% distal occlusion RCA -medium caliber vessel, diffuse distal disease prior to 95% stenosis just prior to bifurcation with small PDA/PLB PA 27/14/19 LV 20 PaSat 33% on Norepi 0.3, epi 0.3, IABP 1:1 AoSat 85% Marck CO/CI 2.49/1.21 -- PCI -- Antithrombotic therapy: Heparin, Integrilin Procedure: LM cannulated with EBU 3.5 guide Spring Coverer 50 wire passed across lesion into distal LAD Patient increasingly hypotensive requiring escalating epinephrine, norepinephrine Left main into LAD lesion predilated with 2.0 compliant balloon with partial reestablished flow Started on Integrilin Unable to wire into circumflex despite multiple different wires Increasingly hypoxic despite nonrebreather mask and intubated by Dr. Irwin With intubation developed sustained unstable VT, spontaneously converted prior to defibrillation Increasingly hypotensive to PEA requiring intermittent chest compressions, epi boluses, atropine. Left main into LAD stented with 3.5 x 18 mm Bells drug-eluting stent Following reestablish flow had return of spontaneous circulation 8 Rwandan sheath placed to right common femoral artery and IABP placed, left at one-to-one Stent post-dilated with 4.0 noncompliant balloon Right coronary artery patent with previously described severe distal disease 7 Fr sheath placed to right common femoral vein, Dora placed to PA PA sat of 33. Trial of dobutamine resulted in worsening hypotension Norepinephrine, epinephrine titrated and vasopressin added Attempted briefly to cannulate SVG to OM which was questionably patent on last cath here 10 years ago. Attempt aborted to save contrast. Post procedure NIKITA 3 flow and left main, LAD and diagonal. Circumflex remained subtotally occluded, minimal flow to mid segment. Arterial Closure: TR band to ulnar artery. IABP, swan line sutured in place Summary: 1. Acute NJ/100% distal LM occlusion 2. Cardiogenic shock 3. Acute hypoxic respiratory failure 4. Chronic distal RCA 95% stenosis 5. Previously documented atretic KHAN to LAD, occluded SVG-RCA. SVG to OM not visualized today (unable to visualize on cath 2009 but reported to have distal LCx competitive flow). 6. Successful PCI of left main into LAD with single drug-eluting stent (3.5 x 18 mm Miguel; post-dilated 4.0 NC). 7. Unsuccessful attempts to pass wires into circumflex artery. Recommendations: Transfer to [facility] for further hemodynamic support, possible additional revascularization. Hemodynamics Rest Ao:: 62/43/50 Final Ao: 106/36/47 LV: 55/20 Recommendations Recommendations: PCI without planned CABG Specimens Specimens: None Radiation Exposure (mGy) -- Contrast (mls) 100 Drains Drains: none Anesthesia moderate Procedural Complication(s) None Disposition [facility] via [facility] I attest to the content of the Intraoperative Record and any orders documented therein. Any exceptions are noted below. [facility] Card Cath Procedure Codes Cardiac Catheterization Procedure 1: Cardiovascular Cath Procedures: 61125 Coronaries & LHC (+/-LV) & RHC Therapeutic Services & Ancillary Proc Procedure 1: Cardiovascular Tx and Anc Procedures: 13536 Ultrasonic Guidance Vascular Access Procedure 2: Cardiovascular Tx and Anc Procedures: 76862 IABP Insertion Procedure 3: Cardiovascular Tx and Anc Procedures: 45526 Code Blue/CPR Moderate Sedation Procedure 1: Sedation/Anesthesia: 80228 Mod Sedation by the same physician;Init15 Min Child Age 5 & Up Procedure 2: Sedation/Anesthesia: 04575 Mod Sedation by the same physician; Ea [id number] Minutes Stenting Procedure 1: Cardiovascular Stent Procedures: 17222 Perc transluminal revascularization of acute sub/total occl, aMI PG Care Time/CCT Total # of Minutes Spent Total Time Spent with Patient: Total time spent is greater than 50% in coordination of care (as documented) at patient's floor/unit and/or counseling patient:
[2019-12-26 14:29] LABS: iSTAT Arterial Blood Gas HCO3 18 meg/L (19-24); iSTAT Arterial Blood Gas pCO2 72 mmHg (35-46); iSTAT Arterial Blood Gas pH 7.01 (7.35-7.45); iSTAT Arterial Blood Gas pO2 < 32 mmHg (80-95); iSTAT Carbon Dioxide 20 mmol/L (24-31); iSTAT Hematocrit 36 % (42-52); iSTAT Hemoglobin 12.2 g/dl (14.0-18.0); iSTAT Potassium 3.7 mmol/L (3.3-5.0); iSTAT Sodium 140 mmol/L (135-144)
[2019-12-26 14:33] LABS: iSTAT Arterial Blood Gas HCO3 17 meg/L (19-24); iSTAT Arterial Blood Gas pCO2 44 mmHg (35-46); iSTAT Arterial Blood Gas pO2 75 mmHg (80-95); iSTAT Carbon Dioxide 18 mmol/L (24-31); iSTAT Hematocrit 36 % (42-52); iSTAT Hemoglobin 12.2 g/dl (14.0-18.0); iSTAT Potassium 4.2 mmol/L (3.3-5.0); iSTAT Sodium 142 mmol/L (135-144)
[2019-12-26 14:33] LABS: iSTAT Arterial Blood Gas HCO3 16 meg/L (19-24); iSTAT Arterial Blood Gas pCO2 56 mmHg (35-46); iSTAT Arterial Blood Gas pH 7.07 (7.35-7.45); iSTAT Arterial Blood Gas pO2 71 mmHg (80-95); iSTAT Carbon Dioxide 18 mmol/L (24-31); iSTAT Hematocrit 34 % (42-52); iSTAT Hemoglobin 11.6 g/dl (14.0-18.0); iSTAT Potassium 3.7 mmol/L (3.3-5.0); iSTAT Sodium 141 mmol/L (135-144)
[2019-12-26 14:34] LABS: iSTAT Arterial Blood Gas HCO3 18 meg/L (19-24); iSTAT Arterial Blood Gas pCO2 49 mmHg (35-46); iSTAT Arterial Blood Gas pH 7.17 (7.35-7.45); iSTAT Arterial Blood Gas pO2 78 mmHg (80-95); iSTAT Carbon Dioxide 19 mmol/L (24-31); iSTAT Hematocrit 32 % (42-52); iSTAT Hemoglobin 10.9 g/dl (14.0-18.0); iSTAT Potassium 2.9 mmol/L (3.3-5.0); iSTAT Sodium 141 mmol/L (135-144)
--- NOTE | 2019-12-26 14:39 | Discharge Summary ---
Date of Service December 26, 2019 Admission HPI Per Admitting Provider Mr. Vazquez is a very pleasant 79-year-old gentleman who normally follows with Dr. Martinez of our cardiology practice. He presented to [facility] via EMS in the a.m. of 12/26/2019 with complaints of acute chest pain. The patient is currently intubated and the history is obtained through review of medical records and discussions with medical personnel. Reportedly the patient developed chest pain around 10 AM. He described it as a pressure sensation. EMS arrived EKG was performed and a heart alert was called. Upon arrival to the emergency department the patient was diaphoretic and he became hypotensive. He received nitro and aspirin without any improvement of the discomfort and he states the pain remained a 10 out of 10. He was taken emergently to the cardiac catheterization lab where he was found to have an occluded left main into the LAD. The patient became unstable at that time and was intubated. Patient went into cardiac arrest and ACLS protocol was performed. Cardiac catheterization was able to restore blood flow to the left main and LAD but a severe proximal circumflex occlusion remain present. The patient stabilized after insertion of a balloon pump and being started on epinephrine and norepinephrine drips. The patient went into atrial fibrillation which is a new diagnosis and he was started on amiodarone. Blood pressures currently 130/80. The patient is int ubated without sedation and unresponsive. Admission Exam Per Admitting Provider General: unresponsive, intubated HEENT: Normocephalic, atraumatic. Pupils equal, round and reactive to light and accommodation. Extraocular muscles are intact. Anicteric sclera. Moist mucous membranes. Neck: No JVD. No bruit. Cardiovascular: Regular. Positive S-4. Normal S-1 and S-2. No S-3. No murmurs or rubs. Pulmonary: Clear to auscultation B/L. No rales, rhonchi or wheezing Abdomen: Bowel sounds x 4, soft. No rebound, guarding or tenderness. No organomegaly. Extremities: No clubbing, cyanosis or edema. +2 pedal pulses bilaterally. Skin: Warm and dry. Principal Diagnosis Anterior STEMI Discharge Data Allergies Allergy/AdvReac Type Severity Reaction Status Date / Time No Known Allergies Allergy Unknown ` Verified 10/15/14 06:28 Procedures Performed Operation Date: 12/26/19 11:45 <No data on this case meets the specified criteria> Ordered Studies 12/26/19 11:31 CL Cath Imgs for PACS use only Stat Hospital Course (1) ST elevation (STEMI) myocardial infarction involving left main coronary artery: Coronary blood flow was reestablished after intervention to the left main and LAD with continued severe proximal circumflex stenosis and RCA -medium caliber vessel, diffuse distal disease prior to 95% stenosis just prior to bifurcation with small PDA/PLB The patient is currently hemodynamically stable on epinephrine, norepinephrine and amiodarone drips. He remains intubated on the vent and balloon pump in place. [place] catheter was also placed. Given the patient's critical condition and complex disease he will be transferred to [facility] in [place] for higher level of care. I spoke with Dr. High the transferring manager equipment who accepted the patient for transfer. He is to be transported now via [facility] [employer]. Family to be updated. (2) CAD (coronary artery disease): (3) CKD (chronic kidney disease), stage III: (4) GERD (gastroesophageal reflux disease): (5) DM type 2 (diabetes mellitus, type 2): Total Time Total Time Spent Total Time Spent (In Minutes): 40 Discharge Plan Discharge Items Patient Disposition: Transfer Acute Care Hospital Reason For Visit: cardiac alert Condition on Discharge: Critical Stand-Alone Forms: My [facility] Medications and DC Order Prescriptions: No Action Nitroglycerin (Nitrostat) 0.4 MG tablet 0.4 mg UT UD PRN (Reason: Chest Pain) Qty: 0 RF: 0 Metoprolol Tartrate (Lopressor) (Lopressor) 50 MG tablet 25 mg PO BID Qty: 0 RF: 0 Ranitidine (Zantac) 150 MG tablet 150 mg PO BID Qty: 0 RF: 0 Simvastatin (Zocor) 20 MG tablet 20 mg PO QPM Qty: 0 RF: 0 ASPIRIN (OCTAVIA CHEWABLE LOW DOSE) 81 MG CHW 81 mg PO DAILY Qty: 0 RF: 0 CYANOCOBALAMIN (VITAMIN B12 500MCG) 500 MCG tablet 500 mcg PO DAILY Qty: 0 RF: 0 LISINOPRIL 2.5 MG tablet 2.5 mg PO DAILY Qty: 0 RF: 0 Enoxaparin (Enoxaparin Sodium) 40 MG/0.4 ML INJECTION 40 mg subcut QAM 14 Days Qty: 14 RF: 0 GLUCOSE BLOOD (BLOOD GLUCOSE TEST STRIPS) 1 JOHNNY JOHNNY 1 box Not Applicable UD 30 Days Qty: 1 RF: 3 Insulin Aspart (NOVOLOG) 100 UNITS/ML INJECTION 5 unit SC TIDM 30 Days Qty: 1 RF: 1 Insulin Glargine (Lantus) 100 UNIT/ML INJECTION 25 unit SC QAM 30 Days Qty: 1 RF: 1 glucose monitor 1 dose UD 30 Days Qty: 1 RF: 0 lancet 1 box Not Applicable UD 30 Days Qty: 1 RF: 3 needles 28 gauge, 1/2 inch 1 box 30 Days Qty: 1 RF: 3 syringes 1 box 30 Days Qty: 1 RF: 3 CALCIUM CARBONATE-VITAMIN D W/ (CALTRATE 600 PLUS) 1 TAB tablet 1 tab PO BID 30 Days Qty: 60 RF: 2 Ergocalciferol (Vitamin D) 50,000 INTERUNIT capsule 50,000 interunit PO Th@0900 90 Days Qty: 11 RF: 0 Admission Data Admit Date/Time: 12/26/19 14:17 Attending Provider: Mayco Zuniga Admit Provider: Chemo Delgado Primary Care Provider: Dipti Woodard Other Providers: Chemo Delgado Other NC Date/Time DO NOT enter until pt leaves facility: 12/26/19 15:23
--- NOTE | 2019-12-26 23:09 | Electrocardiogram Report ---
Test Reason : Blood Pressure : / mmHG Vent. Rate : 075 BPM Atrial Rate : 075 BPM P-R Int : 194 ms QRS Dur : 140 ms QT Int : 416 ms P-R-T Axes : 059 -21 -04 degrees QTc Int : 464 ms Normal sinus rhythm Right bundle branch block Anteroseptal infarct , possibly acute ACUTE OR / STEMI Abnormal ECG When compared with ECG of 03-JUL-2016 21:09, Premature atrial complexes are no longer Present Right bundle branch block is now Present Anteroseptal infarct is now Present ST elevation now present in Anteroseptal leads Confirmed by Yeyo Davis ([id number]) on 12/26/2019 11:09:26 PM Referred By: REFERRED SELF Confirmed By:Yeyo Davis
== END 2019-12-26 15:23 | disposition short-term general hospital (02) | DRG 270 ==
LOC: ED 11:27 → CC 11:45 → 1E 12-27 14:17
PROC: CLB.CPR (2019-12-26 11:45)
DX: Z95.1 Presence of aortocoronary bypass graft; Z87.891 Personal history of nicotine dependence; N18.3 Chronic kidney disease, stage 3 (moderate); I12.9 Hypertensive chronic kidney disease with stage 1 through stage 4 chronic kidney disease, or unspecified chronic kidney disease; I21.01 ST elevation (STEMI) myocardial infarction involving left main coronary artery; Z79.82 Long term (current) use of aspirin; Z95.5 Presence of coronary angioplasty implant and graft; R57.0 Cardiogenic shock; Z79.899 Other long term (current) drug therapy; E78.5 Hyperlipidemia, unspecified; Z79.01 Long term (current) use of anticoagulants; J96.01 Acute respiratory failure with hypoxia; K21.9 Gastro-esophageal reflux disease without esophagitis; Z79.4 Long term (current) use of insulin; Z83.3 Family history of diabetes mellitus; E11.22 Type 2 diabetes mellitus with diabetic chronic kidney disease; I97.710 Intraoperative cardiac arrest during cardiac surgery; I25.10 Atherosclerotic heart disease of native coronary artery without angina pectoris